=== PATIENT | male | born 1950 | race Caucasian/White ===

== ENCOUNTER → 2020-09-14 12:13 | Outpatient (CLI) | payer MEDICARE, OTHER, SELFPAY ==
--- NOTE | 2020-09-14 | DI.RAD.S_ITS ---
PROCEDURE: FL BARIUM SWALLOW INDICATIONS: Dysphagia, unspecified COMPARISON: None. FINDINGS: Function: There is normal esophageal peristalsis. Mild gastroesophageal reflux. There is delayed transit of a calibrated barium tablet at the GE junction secondary to focal narrowing. Morphology: Air-contrast images demonstrate normal mucosal morphology. Single contrast views show focal narrowing at the gastroesophageal junction. No extrinsic mass effects, or diverticula. Limited images of the stomach demonstrate normal appearance. Suspect a duodenal diverticulum in the proximal duodenum. IMPRESSION: 1. There is mild obstruction of a barium tablet at the GE junction. This finding is likely secondary to mild focal stricture of the distal esophagus and GE junction. Upper endoscopy is suggested for follow-up. 2. Mild gastroesophageal reflux. 3. Suspect a duodenal diverticulum in the proximal duodenum. Dictated by: Louisa Rhodes M.D. on 09/14/2020 at 17:52 Approved by: Louisa Rhodes M.D. on 09/14/2020 at 17:55
== END ==
PROVIDERS: PCP Family Medicine; Referring Provider Family Medicine; Visit Provider Family Medicine
DX: R13.10 Dysphagia, unspecified (principal); K21.9 Gastro-esophageal reflux disease without esophagitis
CPT/HCPCS: 74220

== ENCOUNTER → 2020-11-12 09:19 | Outpatient (CLI) | payer MEDICARE, OTHER, SELFPAY ==
[2020-11-12 11:30] LABS: COVID19 -Nasal RAPID Negative (Negative)
== END ==
PROVIDERS: PCP Family Medicine; Visit Provider Surgery
DX: Z01.812 Encounter for preprocedural laboratory examination (principal); Z20.822 Contact with and (suspected) exposure to COVID-19
CPT/HCPCS: 87635; C9803

== ENCOUNTER 2020-11-15 10:14 | Day surgery (SDC) | payer MEDICARE, OTHER, SELFPAY ==
[2020-11-15] VITALS (7 sets, daily range): BP systolic 100–152; BP diastolic 53–69; PULSE 43–50; RESP 7–18; TEMP 36.4–36.9; O2SAT 94–100; BMI 26.6
--- NOTE | 2020-11-15 | PATH_ITS ---
[facility] Accession Number: [id number] . 01 Material submitted: . esophagus, E-G Junction - GE JUNCTION BIOPSY . 02 Diagnosis: Gastroesophageal Junction, Biopsy: Squamocolumnar junctional mucosa with no diagnostic abnormality. Negative for intestinal metaplasia. Negative for dysplasia and malignancy. . [facility] 11/18/2020 1523 Local . 02 Electronically signed: . Chiqui Charles MD, Pathologist NPI- [id number] . 01 Gross description: . GE JUNCTION BIOPSY: Received in formalin are 2 fragment(s) of [place], soft tissue measuring 0.3 x 0.2 x 0.2 cm to 0.1 x 0.1 x 0.1 cm submitted entirely in 1 cassette(s) /LINN 11/16/2020 0452 Local . 02 Microscopic: . An alcian blue stain was performed to evaluate for intestinal metaplasia and is negative. The control stain showed appropriate reactivity. An immunohistochemical stain was performed to evaluate for Helicobacter organisms and is negative. The control stain showed appropriate reactivity. . * This test was developed and its performance characteristics determined by [facility]. It has not been cleared or approved by the U.S. Food and Drug Administration. The FDA has determined that such clearance or approval is not necessary. This test is used for clinical purposes. It should not be regarded as investigational or for research. . 02 Pathologist provided ICD-10: R13.19 . 02 CPT . 949818, 091365, Q75704 Performed at: 01 [facility] [address], [place], [place] [id number] MD Mateo Monaco MD Phone: [phone] Performed at: 02 [facility] [address] [place] [id number] MD Chiqui Charles MD Phone: [phone]
[2020-11-15] MEDS: LACTATED RINGERS 1,000 ML 200 ML IV (10:54)
--- NOTE | 2020-11-15 11:19 | PM.HP.1 ---
History of Present Illness History of Present Illness Date Patient Seen: 11/15/20 Time Patient Seen: 11:19 Chief complaint: SDC Narrative: 70-year-old man with esophageal small stricture here for esophagoduodenoscopy. Please refer H& P from September 2020 for further detail. There been no interval changes in his health. Patient History Medical History Arthritis GERD (gastroesophageal reflux disease) Hyperlipidemia Family & Social History Family History Father Hypertension Heart disease Social History: household members spouse Tobacco & Substance use: Tobacco type cigarettes Smoking Status Former smoker alcohol intake frequency holiday/special occasion Substance Use Type does not use Meds Home Medications and Allergies Home Medications Medication Instructions Recorded Confirmed Type atorvastatin 10 mg tablet (Lipitor) 10 mg PO DAILY 10/11/20 10/11/20 History Allergies Allergy/AdvReac Type Severity Reaction Status Date / Time No Known Drug Allergies Allergy Unverified 10/11/20 15:53 Review of Systems Review of Systems ROS: Yes All systems reviewed with the patient and are negative except as otherwise documented Exam Vital Signs (past 8 hours): - 11/15/20 10:37 Temperature 98.1 F Pulse Rate 49 L Respiratory Rate 14 Blood Pressure 152/69 H Pulse Oximetry 100 Oxygen Delivery Method Room Air Narrative Exam Narrative: Constitutional-he is oriented to person, place and time. No apparent distress Cardiovascular- regular rate, no peripheral edema Pulmonary-unlabored respiratory effort, no audible wheezing Abdominal-soft, non-tender, non-distended Musculoskeletal-no cyanosis or clubbing Neurological-nonfocal, normal strength throughout, normal gait. Skin-warm and dry Assessment & Plan Assessment & Plan narrative: 62-year-old man history of GERD in esophageal stricture here for esophagoduodenoscopy. Possible dilation. Technical details of the procedure were discussed with the patient. Risks including bleeding, infection, perioperative complications, intestinal perforation, need for multiple procedure were discussed. His questions have been answered and he is in agreement with this plan.
[2020-11-15] MEDS: LIDOCAINE 4% SOLN 50 ML 20 ML TOP (11:24)
[2020-11-15] MEDS: fentaNYL 250 MCG/5 ML INJ IV (11:25)
[2020-11-15] MEDS: MIDAZOLAM 5 MG/5 ML VIAL IV (11:25)
--- NOTE | 2020-11-15 11:35 | PM.OP.ENDO ---
Operative Date/Time/Diagnoses Date of procedure: 11/15/20 Time of procedure: 11:35 Pre-op diagnosis: Esophageal dysphagia Post-op diagnosis: other (Esophagitis) Procedure & Clinicians Study performed: Esophagoduodenoscopy Same procedure as scheduled: Yes Indications: Esophageal dysphagia Surgeon: Tacos Fam Procedure Notes Procedure in detail: Patient placed in left lateral decubitus position. Time out was performed. Procedural sedation was administered with Versed and Fentanyl. A bite block was placed. the scope was inserted into the mouth and advanced through the esophagus and into the stomach. The pylorus was intubated and the duodenum was normal to the 2nd portion. The scope was retroflexed within the stomach and there was no hiatal hernia. No ulcers, or gastritis. The scope was withdrawn into the esophagus the Z line was seen at 40 cm from the incisions. There was mild esophagitis. No significant stricture at the GE junction, the scope passed easily into the stomach without any resistance. Biopsy of the GE junction was performed with forceps.. Stomach was desufflated and scope removed. Patient tolerated procedure well. Specimen(s): other (GE junction) Complications: none Impression: Esophagitis Post-procedure Recommendations: Reflux diet Plan for aftercare: Start omeprazole 20 mg daily Disposition: same day surgery
== END 2020-11-15 12:32 | disposition home or self-care (01) ==
PROVIDERS: PCP Family Medicine; Referring Provider Surgery; Visit Provider Surgery
PROC: 0DJ08ZZ Inspection of Upper Intestinal Tract, Via Natural or Artificial Opening Endoscopic (ICD-10-PCS; CPT 43235; principal; 2020-11-15 11:30)
DX: K21.00 Gastro-esophageal reflux disease with esophagitis, without bleeding (principal); E78.5 Hyperlipidemia, unspecified
CPT/HCPCS: 43239; J2250; J3010

== ENCOUNTER → 2021-01-31 10:57 | Outpatient (CLI) | payer MEDICARE, OTHER, SELFPAY ==
--- NOTE | 2021-01-31 | DI.RAD.S_ITS ---
PROCEDURE: XR CHEST 2V INDICATIONS: Encounter for general adult medical examination without abno TECHNIQUE: 2 views of the chest were acquired. COMPARISON: None. FINDINGS: Surgical changes and devices: None. Lungs and pleura: Hyperexpanded. No consolidation, pleural effusions or pneumothorax. Mediastinum: Mediastinal contours are normal. Heart size is normal. Bones and chest wall: No suspicious bony abnormalities. Slight elevation of the right diaphragm. IMPRESSION: No acute cardiopulmonary abnormality. Dictated by: Errol Coleman M.D. on 01/31/2021 at 11:24 Approved by: Errol Coleman M.D. on 01/31/2021 at 11:25
== END ==
PROVIDERS: PCP Family Medicine; Referring Provider Family Medicine; Visit Provider Family Medicine
DX: Z00.00 Encounter for general adult medical examination without abnormal findings (principal)
CPT/HCPCS: 71046

== ENCOUNTER → 2022-12-21 12:06 | Outpatient (CLI) | payer OTHER, SELFPAY ==
--- NOTE | 2022-12-21 12:08 | DI.US.S_ITS ---
PROCEDURE: US ABD AORTA ANEURYSM SCREEN INDICATIONS: AAA SCREENING TECHNIQUE: Real time scanning was performed of the aorta and iliac arteries, with image documentation. COMPARISON: [facility], , ABDOMEN COMPLETE, 07/30/2014, 11:19. FINDINGS: Aorta: Proximal aortic diameter measures 2.6 cm. Mid-aorta measures 2.1 cm. Distal aortic diameter is 2 cm. Iliac arteries: Right common iliac artery measures 1 cm. Left common iliac artery measures 0.9 cm. IMPRESSION: Negative for aneurysm. No significant change from the prior. Dictated by: Aime Hairston M.D. on 12/21/2022 at 12:13 Approved by: Aime Hairston M.D. on 12/21/2022 at 12:14
== END ==
PROVIDERS: PCP Family Medicine; Referring Provider Internal Medicine; Visit Provider Internal Medicine
DX: Z13.6 Encounter for screening for cardiovascular disorders (principal); Z72.0 Tobacco use
CPT/HCPCS: 76706